=== PATIENT | female | born 1980 | race Caucasian/White ===

== ENCOUNTER 2022-09-07 22:28 | Inpatient (IN) | payer BC ==
[2022-09-08] MEDS ORDERED: RIVAROXABAN 15 MG TABLET PO ONE (00:59)
[2022-09-08 01:54] LABS: BASO % 0.9 % (0-2.0); EOS % 0.4 % (0-4.5); HEMATOCRIT 25.5 % (32.4-45.2); HEMOGLOBIN 7.7 GM/dL (10.7-15.3); LYMPH % 11.2 % (8-40); MCH 20.1 pg (25.7-33.7); MCHC 30.4 g/dl (32.0-36.0); MEAN CELL VOLUME 66.1 fl (80-96); MEAN PLT VOLUME 10.8 fl (7.5-11.1); MONO % 6.1 % (3.8-10.2); NEUT % 81.4 % (42.8-82.8); PLATELET COUNT 251 10^3/uL (134-434); RBC 3.86 M/mm3 (3.60-5.2); RDW 21.5 % (11.6-15.6); WHITE BLOOD COUNT 12.6 K/mm3 (4.0-10.0)
[2022-09-08 02:06] LABS: CHLORIDE 102 mmol/L (98-107); SODIUM 124 mmol/L (136-145)
[2022-09-08 02:08] LABS: CALCIUM 8.4 mg/dL (8.5-10.1)
[2022-09-08 02:10] LABS: ALBUMIN 3.6 g/dl (3.4-5.0); BLOOD UREA NITROGEN 12.3 mg/dL (7-18); CO2 22 mmol/L (21-32); GLUCOSE,RANDOM 121 mg/dL (74-106); MAGNESIUM 2.2 mg/dL (1.8-2.4)
[2022-09-08 02:12] LABS: CREATININE 0.6 mg/dL (0.55-1.3)
[2022-09-08 02:13] LABS: BILIRUBIN,TOTAL 0.5 mg/dL (0.2-1)
[2022-09-08 02:15] LABS: ALK PHOS 94 U/L (45-117)
[2022-09-08 02:23] LABS: ANION GAP 1 MMOL/L (8-16); POTASSIUM > 10.0 mmol/L (3.5-5.1); SGOT/AST 227 U/L (15-37); SGPT/ALT 41 U/L (13-61)
[2022-09-08 04:01] LABS: POTASSIUM 4.1 mmol/L (3.5-5.1)
[2022-09-08 04:03] LABS: CALCIUM 8.4 mg/dL (8.5-10.1)
[2022-09-08 04:04] LABS: ALBUMIN 3.5 g/dl (3.4-5.0); BLOOD UREA NITROGEN 12.4 mg/dL (7-18)
[2022-09-08 04:07] LABS: CREATININE 0.6 mg/dL (0.55-1.3)
[2022-09-08 04:09] LABS: BILIRUBIN,TOTAL 0.3 mg/dL (0.2-1); TOT PROT 7.9 g/dl (6.4-8.2)
[2022-09-08] MEDS ORDERED: morphine CARPU-JECT 2 MG/1 ML DISP.SYRIN IVPUSH ONE (04:38)
[2022-09-08] MEDS ORDERED: ACETAMINOPHEN 1000 MG/100 ML BAG IVPB ONE (04:39)
[2022-09-08 06:24] LABS: HEMATOCRIT 21.3 % (32.4-45.2); MCH 20.3 pg (25.7-33.7); MCHC 31.2 g/dl (32.0-36.0); MEAN CELL VOLUME 65.1 fl (80-96); PLATELET COUNT 199 10^3/uL (134-434); RBC 3.27 M/mm3 (3.60-5.2); RDW 19.5 % (11.6-15.6); WHITE BLOOD COUNT 9.6 K/mm3 (4.0-10.0)
[2022-09-08 06:29] LABS: HEMOGLOBIN 6.6 GM/dL (10.7-15.3)
[2022-09-08 06:42] LABS: INR 1.16 (0.83-1.09); POTASSIUM 3.8 mmol/L (3.5-5.1); PROTHROMBIN TIME (PATIENT) 13.4 SEC (9.7-13.0)
[2022-09-08 06:44] LABS: BLOOD UREA NITROGEN 12.2 mg/dL (7-18)
[2022-09-08 06:45] LABS: ALBUMIN 3.2 g/dl (3.4-5.0)
[2022-09-08 06:48] LABS: CREATININE 0.5 mg/dL (0.55-1.3)
[2022-09-08 06:49] LABS: BILIRUBIN,TOTAL 0.3 mg/dL (0.2-1); TOT PROT 7.2 g/dl (6.4-8.2)
[2022-09-08] MEDS ORDERED: morphine SULFATE 4 MG/ML VIAL IVPUSH PRN (08:49)
[2022-09-08 09:38] LABS: RETICULOCYTES 1.86 % (0.5-1.5)
[2022-09-08] MEDS ORDERED: RIVAROXABAN 15 MG TABLET PO SCH (10:00)
[2022-09-08] MEDS ORDERED: ENOXAPARIN NA (PORCINE) 40 MG/0.4 ML DISP.SYRIN SQ SCH (10:00)
[2022-09-08] MEDS: FERROUS SO4 325 MG TABLET (FP) PO SCH (11:00)
[2022-09-08] MEDS: ENOXAPARIN NA (PORCINE) 100 MG/1 ML DISP.SYRIN SQ SCH ×2 (11:43→21:16)
[2022-09-08] MEDS: PANTOPRAZOLE 40 MG TABLET PO SCH (11:43)
[2022-09-08] MEDS: ACETAMINOPHEN 1000 MG/100 ML BAG IVPB PRN ×2 (11:57→21:20)
[2022-09-08 12:24] LABS: BASO % 0.8 % (0-2.0); EOS % 1.1 % (0-4.5); HEMATOCRIT 24.6 % (32.4-45.2); HEMOGLOBIN 7.9 GM/dL (10.7-15.3); MCH 21.1 pg (25.7-33.7); MCHC 32.1 g/dl (32.0-36.0); MEAN CELL VOLUME 65.9 fl (80-96); MEAN PLT VOLUME 10.5 fl (7.5-11.1); MONO % 7.7 % (3.8-10.2); NEUT % 72.4 % (42.8-82.8); PLATELET COUNT 203 10^3/uL (134-434); RBC 3.74 M/mm3 (3.60-5.2); WHITE BLOOD COUNT 8.7 K/mm3 (4.0-10.0)
[2022-09-08 14:10] VITALS: BMI 33.9
[2022-09-09] MEDS: ACETAMINOPHEN 1000 MG/100 ML BAG IVPB PRN (08:13)
[2022-09-09 09:27] LABS: BASO % 1.4 % (0-2.0); EOS % 3.9 % (0-4.5); HEMATOCRIT 24.8 % (32.4-45.2); HEMOGLOBIN 7.9 GM/dL (10.7-15.3); LYMPH % 18.3 % (8-40); MCHC 31.7 g/dl (32.0-36.0); MEAN CELL VOLUME 66.1 fl (80-96); MEAN PLT VOLUME 10.1 fl (7.5-11.1); MONO % 7.7 % (3.8-10.2); NEUT % 68.7 % (42.8-82.8); PLATELET COUNT 256 10^3/uL (134-434); RBC 3.76 M/mm3 (3.60-5.2); RDW 19.9 % (11.6-15.6); WHITE BLOOD COUNT 7.1 K/mm3 (4.0-10.0)
[2022-09-09] MEDS: ENOXAPARIN NA (PORCINE) 100 MG/1 ML DISP.SYRIN SQ SCH ×2 (09:27→21:13)
[2022-09-09] MEDS: PANTOPRAZOLE 40 MG TABLET PO SCH (09:27)
[2022-09-09] MEDS: FERROUS SO4 325 MG TABLET (FP) PO SCH (09:27)
[2022-09-09] MEDS ORDERED: HEPARIN NA (PORCINE) 5,000 UNITS/ML 1ML VIAL ONE (10:54)
[2022-09-09] MEDS ORDERED: LIDOCAINE HCL 1%, 10 MG/ML (10ML VIAL) MDV ONE (10:54)
[2022-09-09] MEDS ORDERED: ceFAZolin SODIUM 1 GM VIAL IVPB ONE (13:02)
[2022-09-09] MEDS ORDERED: LIDOCAINE HCL 1%, 10 MG/ML (20ML VIAL) INF ONE ×2 (13:07)
[2022-09-09] MEDS ORDERED: ONDANSETRON 4 MG/2 ML VIAL IVPUSH PRN (14:29)
[2022-09-09] MEDS ORDERED: oxyCODONE HCL 5 MG TABLET PO PRN (14:29)
[2022-09-09] MEDS ORDERED: THROMBIN (BOVINE) 5,000 UNIT VIAL TP ONE (14:33)
[2022-09-09 16:20] VITALS: RESP 18
[2022-09-10] MEDS ORDERED: ACETAMINOPHEN 1000 MG/100 ML BAG IVPB PRN (02:00)
[2022-09-10] MEDS: ENOXAPARIN NA (PORCINE) 100 MG/1 ML DISP.SYRIN SQ SCH (09:44)
[2022-09-10] MEDS ORDERED: FERROUS SO4 325 MG TABLET (FP) PO SCH (10:00)
[2022-09-10] MEDS ORDERED: PANTOPRAZOLE 40 MG TABLET PO SCH (10:00)
[2022-09-10] MEDS ORDERED: APIXABAN 5 MG TABLET PO SCH (11:00)
[2022-09-10 11:16] VITALS: TEMP 98.7
[2022-09-10] MEDS ORDERED: IRON SUCROSE INJECTION 200 MG in SODIUM CHLORIDE 90 ML IVPB ONE (12:30)
[2022-09-10 14:58] VITALS: BP 122/65; PULSE 110
[2022-09-10] MEDS ORDERED: ACETAMINOPHEN 325 MG TABLET (FP) PO ONE (15:30)
[2022-09-10] MEDS ORDERED: oxyCODONE HCL 5 MG TABLET PO ONE (15:30)
== END 2022-09-10 17:01 | disposition home or self-care (01) | DRG 272 ==
LOC: JER 22:28 → JERBED 09-08 02:10 → J5S 09-08 10:25
PROVIDERS: ADMIT Internal Medicine
PROC: 06CG3ZZ Extirpation of Matter from Left External Iliac Vein, Percutaneous Approach (ICD-10-PCS; 2022-09-09)
PROC: 06CN3ZZ Extirpation of Matter from Left Femoral Vein, Percutaneous Approach (ICD-10-PCS; 2022-09-09)
PROC: 047D3DZ Dilation of Left Common Iliac Artery with Intraluminal Device, Percutaneous Approach (ICD-10-PCS; 2022-09-09)
PROC: B50CYZZ Plain Radiography of Left Lower Extremity Veins using Other Contrast (ICD-10-PCS; 2022-09-09)
PROC: 3E033GC Introduction of Other Therapeutic Substance into Peripheral Vein, Percutaneous Approach (ICD-10-PCS; 2022-09-09)
PROC: 06C03ZZ Extirpation of Matter from Inferior Vena Cava, Percutaneous Approach (ICD-10-PCS; principal; 2022-09-09 12:00)
PROC: 06CD3ZZ Extirpation of Matter from Left Common Iliac Vein, Percutaneous Approach (ICD-10-PCS; 2022-09-09 12:00)
DX: I82.412 Acute embolism and thrombosis of left femoral vein (principal); I82.422 Acute embolism and thrombosis of left iliac vein; D25.9 Leiomyoma of uterus, unspecified; D64.9 Anemia, unspecified; Z98.84 Bariatric surgery status; K21.9 Gastro-esophageal reflux disease without esophagitis; N92.0 Excessive and frequent menstruation with regular cycle; E66.8 Other obesity; Z68.33 Body mass index [BMI] 33.0-33.9, adult
CPT/HCPCS: 0241U-QW; 36415; 36430; 71046-TC-FY; 76000-TC-FY; 76830-TC; 80053; 82728; 83540; 83550; 83735; 84484; 84703; 85025; 85027; 85045; 85610; 85730; 86850; 86900; 86901; 86922; 88304-TC; 93005; 93010; 93970-TC; 94760; 97116-GP; 97162-GP; 99285-25; C1725; C1757; C1894; J1644; J1756; P9058

== ENCOUNTER 2022-11-05 09:20 | Day surgery (SDC) | payer BC, OTHER ==
[2022-11-05] MEDS ORDERED: FERRIC CARBOXYMALTOSE 750 MG in SODIUM CHLORIDE 250 ML IVPB ONE (10:00)
[2022-11-05 16:47] VITALS: BP 99/58; PULSE 78; RESP 18; TEMP 98.6
== END 2022-11-05 11:10 | disposition home or self-care (01) ==
LOC: J7W 09:20 → JONCNONCHE 09:20
PROVIDERS: ATTEND Thoracic Surgery (Cardiothoracic Vascular Surgery)
PROC: 3E033GC Introduction of Other Therapeutic Substance into Peripheral Vein, Percutaneous Approach (ICD-10-PCS; principal; 2022-11-05)
DX: D50.9 Iron deficiency anemia, unspecified (principal)
CPT/HCPCS: 96365; J1439

== ENCOUNTER 2022-11-12 09:51 | Day surgery (SDC) | payer BC, OTHER ==
[2022-11-12] MEDS ORDERED: FERRIC CARBOXYMALTOSE 750 MG in SODIUM CHLORIDE 250 ML IVPB ONE (10:00)
[2022-11-12 16:03] VITALS: BP 107/62; PULSE 77; RESP 20; TEMP 98.8
== END 2022-11-12 11:10 | disposition home or self-care (01) ==
LOC: J7W 09:51 → JONCNONCHE 09:51
PROVIDERS: ATTEND Thoracic Surgery (Cardiothoracic Vascular Surgery)
PROC: 3E033GC Introduction of Other Therapeutic Substance into Peripheral Vein, Percutaneous Approach (ICD-10-PCS; principal; 2022-11-12)
DX: D50.9 Iron deficiency anemia, unspecified (principal)
CPT/HCPCS: 96365; J1439

== ENCOUNTER 2022-12-16 00:54 | Emergency (ER) | payer OTHER ==
[2022-12-16 01:04] VITALS: BP 108/74; PULSE 63; RESP 20; TEMP 98.1; BMI 31.4
[2022-12-16 03:21] LABS: BASO % 1.2 % (0-2.0); HEMATOCRIT 39.6 % (32.4-45.2); HEMOGLOBIN 12.9 GM/dL (10.7-15.3); LYMPH % 51.9 % (8-40); MCH 26.8 pg (25.7-33.7); MCHC 32.7 g/dl (32.0-36.0); MEAN CELL VOLUME 82.1 fl (80-96); MEAN PLT VOLUME 9.8 fl (7.5-11.1); NEUT % 32.9 % (42.8-82.8); PLATELET COUNT 197 10^3/uL (134-434); RBC 4.82 M/mm3 (3.60-5.2); RDW 23.2 % (11.6-15.6); WHITE BLOOD COUNT 5.6 K/mm3 (4.0-10.0)
[2022-12-16 03:30] LABS: INR 1.24 (0.83-1.09); PROTHROMBIN TIME (PATIENT) 14.4 SEC (9.7-13.0)
[2022-12-16 03:32] LABS: ACTIVATED PTT 33.2 SECONDS (25.2-36.5)
[2022-12-16 03:34] LABS: CHLORIDE 109 mmol/L (98-107); POTASSIUM 4.4 mmol/L (3.5-5.1); SODIUM 143 mmol/L (136-145)
[2022-12-16 03:36] LABS: CALCIUM 8.6 mg/dL (8.5-10.1)
[2022-12-16 03:37] LABS: ALBUMIN 3.3 g/dl (3.4-5.0); ANION GAP 5 MMOL/L (8-16); BLOOD UREA NITROGEN 12.5 mg/dL (7-18); CO2 29 mmol/L (21-32); GLUCOSE,RANDOM 87 mg/dL (74-106)
[2022-12-16 03:40] LABS: CREATININE 0.6 mg/dL (0.55-1.3); SGOT/AST 18 U/L (15-37); SGPT/ALT 20 U/L (13-61)
[2022-12-16 03:41] LABS: BILIRUBIN,TOTAL < 0.1 mg/dL (0.2-1); TOT PROT 7.1 g/dl (6.4-8.2)
[2022-12-16 03:43] LABS: ALK PHOS 78 U/L (45-117)
[2022-12-16 08:20] LABS: ANISOCYTOSIS 1+; MACROCYTOSIS 1+
== END 2022-12-16 05:48 | disposition home or self-care (01) ==
LOC: JER 00:54
DX: R07.89 Other chest pain (principal)
CPT/HCPCS: 36415; 71275-TC; 80053; 84484; 84703; 85025; 85610; 85730; 86850; 86900; 86901; 93005; 93010; 93970-TC; 99285-25; Q9967

== ENCOUNTER 2023-03-12 10:39 | Day surgery (SDC) | payer OTHER ==
[2023-03-12] MEDS ORDERED: FERRIC CARBOXYMALTOSE 750 MG in SODIUM CHLORIDE 250 ML IVPB ONE (11:00)
[2023-03-12 14:34] VITALS: RESP 18; TEMP 98.9
[2023-03-12 14:38] VITALS: BP 97/52; PULSE 66
== END 2023-03-12 12:35 | disposition home or self-care (01) ==
LOC: JONCNONCHE 10:39 → J7W 10:40 → JONCNONCHE 12:35
PROVIDERS: ATTEND Thoracic Surgery (Cardiothoracic Vascular Surgery)
PROC: 3E033GC Introduction of Other Therapeutic Substance into Peripheral Vein, Percutaneous Approach (ICD-10-PCS; principal; 2023-03-12)
DX: D50.9 Iron deficiency anemia, unspecified (principal)
CPT/HCPCS: 96365; J1439

== ENCOUNTER 2023-03-19 11:12 | Day surgery (SDC) | payer OTHER ==
[~2023-03-19 11:12] MED LIST: FERRIC CARBOXYMALTOSE 750 MG in SODIUM CHLORIDE 250 ML IVPB ONE
[2023-03-19 16:22] VITALS: BP 114/59; PULSE 70; RESP 18; TEMP 98.3
== END 2023-03-19 13:00 | disposition home or self-care (01) ==
LOC: JONCNONCHE 11:12 → J7W 11:16 → JONCNONCHE 13:00
PROVIDERS: ATTEND Thoracic Surgery (Cardiothoracic Vascular Surgery)
PROC: 3E033GC Introduction of Other Therapeutic Substance into Peripheral Vein, Percutaneous Approach (ICD-10-PCS; principal; 2023-03-19)
DX: D50.9 Iron deficiency anemia, unspecified (principal)
CPT/HCPCS: 96365; J1439

== ENCOUNTER 2024-04-02 10:33 | Emergency (ER) | payer OTHER ==
[2024-04-02 10:48] VITALS: BP 121/69; PULSE 74; RESP 18; TEMP 98.7; BMI 34.2
[2024-04-02] MEDS ORDERED: ACETAMINOPHEN 325 MG TABLET (FP) ONE (11:49)
[2024-04-02] MEDS: ACETAMINOPHEN 500 MG TABLET (FP) PO ONE (11:58)
== END 2024-04-02 14:43 | disposition home or self-care (01) ==
LOC: JER 10:33
DX: M71.21 Synovial cyst of popliteal space [Baker], right knee (principal); M25.561 Pain in right knee
CPT/HCPCS: 93005; 93010; 93971-TC; 99284-25